=== PATIENT | female | born 1980 | race Hispanic/Latino ===

== ENCOUNTER 2022-07-19 14:51 | Emergency (ER) | payer BC, SELFPAY ==
[2022-07-19 15:02] VITALS: BP 122/66; PULSE 70; RESP 16; TEMP 36.6; O2SAT 100
--- NOTE | 2022-07-19 15:19 | ED.URI ---
HPI - URI/Sore Throat General Chief Complaint: Upper Respiratory Infection Stated Complaint: SORE THROAT/EARACHE Time Seen by Provider: 07/19/22 15:19 Source: patient, RN notes reviewed and old records reviewed Mode of arrival: ambulatory Limitations: no limitations History of Present Illness HPI Narrative: 42 year old female who presents to [facility] care with complaints of cold symptoms of sore throat , runny nose for the past 4-5 days with complaints of ear pain to right ear which started yesterday, PATIENT REPORTS THAT SHE DOES HAVE A LITTLE COUGH BUT NO SHORTNESS OF BREATH OR ANY KNOW FEVERS. SHE STATES THAT SHE HAS TAKEN SOME DAYQUIL FOR HER SYMPTOMS. Patient has had COVID vaccinations and flu shot. MD elicited complaint: cough, sore throat and other (RIGHT EAR PAIN) Onset (ago): day(s) (4-5 DAYS SORE THROAT RUNNY NOSE AND COUGH, EAR PAIN SINCE YESTERDAY) Pain scale (0-10): 7 Able to tolerate fluids by mouth: Yes Treatments prior to arrival: other (DAYQUIL) Related Data Home Medications Medication Instructions Recorded Confirmed No Home Medications 07/19/22 07/19/22 Allergies Allergy/AdvReac Type Severity Reaction Status Date / Time No Known Allergies Allergy Verified 07/19/22 15:25 Review of Systems Review of Systems: CONSTITUTIONAL: Denies malaise, chills, sweats, or fever. EYES: Denies visual changes, redness, or discharge. ENT: Reports rhinorrhea, congestion, sinus pain, right otalgia and sore throat. CARDIOVASCULAR: Denies chest pain, palpitations, or edema. RESPIRATORY: Reports cough.? Denies dyspnea. GASTROINTESTINAL: Denies abdominal pain, nausea, vomiting, diarrhea SKIN: Denies rash or itching. MUSCULOSKELETAL: Denies myalgia. NEUROLOGIC: Denies headache. All systems reviewed & are unremarkable except as noted in HPI and below PMFSH Surgical History Surgical History (Updated 07/19/22 @ 16:33 by Aleah Friend NP) Previous section Social History Social History (Updated 07/19/22 @ 16:31 by Aleah Friend NP) Smoking status: Never smoker Living arrangements: with family Gender identity (if verbalized by the patient): Female Comments At time of signature, agree with nursing past medical, surgical, social and family history. There is no relevant family history pertinent to the presenting complaint Exam Narrative: GENERAL: Well-appearing, well-nourished, and in no acute distress. HEAD: Normocephalic EYES: PERRLA, conjunctivae clear ENT: Nares clear, turbinates edematous and erythematous, clear discharge. Mucous membranes moist.Right TM red and painful, Left TM pearly more with dull light reflex bilaterally; no tragal tenderness. Oropharynx erythematous without lesions. Tonsils not enlarged and without exudate, no drooling, no hoarseness, no trismus, uvula midline. NECK: Supple. No lymphadenopathy CHEST: Clear to auscultation, breath sounds equal. No wheezing, rhonchi, rales, or stridor. No respiratory distress, speaks in full sentences.SAO2 100% on room air occasional dry cough noted HEART: Regular rate and rhythm. No murmur heard. SKIN: Warm, dry, no rash. NEURO: Alert and oriented x3. PSYCH: Normal mood and affect Course Course Emergency Course: Patient is aware of diagnosis, understands and agrees to treatment plan.? Anticipatory guidance given.? Patient agrees to follow-up as directed and is aware of reasons to seek care at the emergency department. Portions of this record may have been created with voice recognition software Level of Care: Express Care Visit Vital Signs Vital signs: Vital Signs Temperature 36.6 C 07/19/22 15:02 Pulse Rate 70 07/19/22 15:02 Respiratory Rate 16 07/19/22 15:02 Blood Pressure 122/66 07/19/22 15:02 Pulse Oximetry 100 07/19/22 15:02 Temperature 36.6 C 07/19/22 15:02 Pulse Rate 70 07/19/22 15:02 Respiratory Rate 16 07/19/22 15:02 Blood Pressure 122/66 07/19/22 15:02 P
== END 2022-07-19 15:30 | disposition home or self-care (01) ==
PROVIDERS: Emergency Provider Registered Nurse
DX: H66.91 Otitis media, unspecified, right ear (principal); J06.9 Acute upper respiratory infection, unspecified
CPT/HCPCS: 99213; G0463